=== PATIENT | male | born 1995 | race Caucasian/White ===

== ENCOUNTER 2019-06-03 15:39 | Outpatient (CLI) | payer BC ==
--- NOTE | 2019-06-04 08:00 | MRI ---
MRI OF LEFT KNEE PERFORMED WITHOUT CONTRAST ENHANCEMENT: HISTORY: Injured knee in March. Having trouble fully extending left knee. FINDINGS: There is a proximal ACL tear which appears complete. The posterior cruciate ligament is intact. The medial as well as lateral menisci have a normal shape and appearance. The medial as well as lateral collateral ligaments are intact. Iliotibial band region appears unrema rkable. Patellar articular cartilage is intact. The mediolateral patellar retinaculum and quadriceps and pat ellar tendons appear unremarkable other than some mild patellar tendinosis. IMPRESSION: 1. Anterior cruciate ligament tear is a more proximal complete anterior cruciate ligament tear. 2. Very mild patellar tendinosis. POS: [facility]
== END 2019-06-03 15:40 | disposition home or self-care (01) ==
LOC: SCSMRI 15:39
PROVIDERS: ATTEND Orthopaedic Surgery
DX: M25.562 Pain in left knee (principal); S83.512A Sprain of anterior cruciate ligament of left knee, initial encounter; M76.52 Patellar tendinitis, left knee

== ENCOUNTER 2019-06-15 14:13 | Day surgery (SDC) | payer BC ==
[~2019-06-15 14:13] MED LIST: EPHEDRINE 25 MG/5 ML SYRINGE ONE; Lidocaine 1% PF 5 ML VIAL ONE; Ondansetron PF 4 MG/2 ML Vial ONE; PHENYLEPHRINE-NS 100 MCG/ML 10 ML SYRINGE ONE; PROPOFOL 200 MG/20 ML VIAL ONE
[2019-06-15 15:06] LABS: #Basophils 0.1 thou/uL (0.0-0.2); #Eosinphils 0.4 thou/uL (0.0-0.7); #Lymphocytes 2.3 thou/uL (1.20-3.40); #Monocytes 0.7 thou/uL (0.11-0.59); #Neutrophils 5.3 thou/uL (1.40-6.50); %Basophils 0.8 % (0.0-1.0); %Eosinophils 4.5 % (0.0-10.0); %Lymphocytes 26.3 % (21.0-51.0); %Monocytes 7.6 % (0.0-10.0); %Neutrophils 60.8 % (42.0-75.0); Hemoglobin 17.6 g/dL (14.0-18.0); Mean Corpuscular HGB CONC 34.2 g/dL (32.0-36.0); Mean Corpuscular Hemoglobin 30.9 pg (27.0-31.0); Mean Corpuscular Volume 90.4 fL (78.0-98.0); Mean Platelet Volume 7.9 fL (7.4-10.4); Platelet Count 254 thou/uL (130-400); RBC Distribution Width 11.1 % (11.5-14.5); Red Blood Cell (RBC) Count 5.68 mill/uL (4.70-6.10); White Blood Cell (WBC) Count 8.7 thou/uL (4.8-10.8)
[2019-06-15] MEDS ORDERED: Bupivacaine PF 0.5% 30 ML VIAL ONE (16:56)
[2019-06-15] MEDS ORDERED: Bacitracin Zinc Ointment 30 gm TUBE ONE (16:56)
[2019-06-15] MEDS ORDERED: Sodium Chloride 0.9% 10 ML ONE ×2 (16:56→16:57)
[2019-06-15] MEDS ORDERED: Lidocaine 2% Jelly 5 ML TUBE ONE (17:00)
[2019-06-15] MEDS ORDERED: Midazolam HCl 2 mg/2 ml Vial ONE (17:00)
[2019-06-15] MEDS ORDERED: Fentanyl 100 MCG/2 ML VIAL ONE (17:00)
[2019-06-15] MEDS ORDERED: Ketorolac Tromethamine 30 MG/ML VIAL ONE (19:50)
--- NOTE | 2019-06-16 00:53 | OP ---
DATE OF PROCEDURE: 06/15/2019 PREOPERATIVE DIAGNOSES: 1. Left thumb open distal phalanx fracture with open wound 3 cm. 2. Laceration to left thumb. 3. Complex nail bed laceration with defect. POSTOPERATIVE DIAGNOSES: 1. Left thumb open distal phalanx fracture with open wound 3 cm. 2. Laceration to left thumb. 3. Complex nail bed laceration with defect. FINDINGS: 1. Left thumb open distal phalanx fracture with open wound 3 cm. 2. Laceration to left thumb. 3. Complex nail bed laceration with defect. PROCEDURES PERFORMED: 1. Left thumb wound debridement deep down to including bone. 2. Debridement of material associated with open fracture. 3. Nail bed repair. 4. Nail bed graft 5 x 3 mm. 5. C-arm supervision. 6. Left thumb distal phalanx fracture open reduction and internal fixation. 7. Application of short-arm splint. SPECIMENS: None. ESTIMATED BLOOD LOSS: 10 mL. TOURNIQUET TIME: 58 minutes. INJECTABLES: 10 mL of 0.5% Marcaine before procedure began. INDICATIONS FOR PROCEDURE: The patient with a 3-day old wound, presented to clinic today with markedly comminuted fracture, neurologically intact including normal two-point discrimination in the radial and ulnar aspect of the thumb, but he had a 4-part fracture that was angulated, displaced and a nail bed laceration associated with it that was over 80% hematoma indicating the high likelihood of complex nail bed injury that needed repair. DESCRIPTION OF PROCEDURE: After successful general LMA technique, the limb was prepped and draped. The patient had the time-out done appropriately. Limb prepped and draped. Limb exsanguinated. Tourniquet inflated to 250 mmHg pressure. We made a 40 degrees angle incision beginning at the base of the nail bed on the same side of the laceration (the ulnar side) and then lifted up the nail via eponychial fold to evaluate the nail bed. We saw he had a germinal nail bed laceration with marked comminution of the nail bed laceration itself, we lifted up the bone, inspected and saw there were small amount of hematoma, so underwent debridement using the following techniques: 1. Excision technique. 2. Use of curette, Eighty Four blade, 11 blade knife, and Pulsavac 2 L with antibiotics inside. 3. Debridement technique down to depth including the bone as well as the bone and there was no gross particles seen today. Once we finished irrigation and debridement of this, we debrided the wound in the same fashion using same instruments and techniques, we then prepared for repair. First, we sutured the laceration that was 3 cm using a combination of 4-0 and 5-0 nylon. Then, we lifted up the edges of the nail bed, visualized the fracture once again, reduced it from outside and then held it in place. We passed 2 K-wires in the sagittal plane parallel and the frontal plane obliquely conversion for compression. Once this was done, we used a best fit technique. There was so much comminution in the 4-part fracture that we had too except a mild degree of impaction. The patient then had the nailbed laceration repaired. After we performed the repair with 6-0 chromic, we noted there was an area approximately 5 x 3 mm where the nail bed was so jagged, when lifted up it was none actually there, so we decided to place a partial-thickness nailbed graft using mostly germinal matrix/sterile matrix juncture nailbed. A 5 x 3 mm area was harvested. It was wet with normal saline drops and then we used three 6-0 chromic in a triangular shaped pattern to secure it. We placed a heavy amount of bacitracin, Adaptic over this, took the old nail and cut it square and placed it on top of this and then we released the tourniquet. We closed the eponychial fold with a 4-0 nylon, and we secured the nail in this manner. We placed bacitracin, Adaptic, 4 x 4 over the repaired nail and nail bed and laceration, 4x4s, Kerlix, and then a short-arm thumb spica splint. He left the operation with a pink finger and no evidence of anesthetic or operative complication. Job ID: [id number]
== END 2019-06-15 21:25 | disposition home or self-care (01) ==
LOC: SDC 14:13
PROVIDERS: ATTEND Orthopaedic Surgery Hand Surgery
PROC: 0PBV0ZZ Excision of Left Finger Phalanx, Open Approach (ICD-10-PCS; principal; 2019-06-15)
PROC: 0HRQX7Z Replacement of Finger Nail with Autologous Tissue Substitute, External Approach (ICD-10-PCS; principal; 2019-06-15)
PROC: 0PSS04Z Reposition Left Thumb Phalanx with Internal Fixation Device, Open Approach (ICD-10-PCS; principal; 2019-06-15)
DX: S62.522B Displaced fracture of distal phalanx of left thumb, initial encounter for open fracture (principal); X58.XXXA Exposure to other specified factors, initial encounter; Y93.59 Activity, other involving other sports and athletics played individually
CPT/HCPCS: 36415; 76000; 85025; J0690; J1885; J2001; J2250; J2405; J2704; J3010; J3490; S0020

== ENCOUNTER 2019-07-28 06:36 | Outpatient (CLI) | payer BC, OTHER ==
[2019-07-28 17:07] LABS: SARS-CoV-2 MS2 Positive; SARS-CoV-2 N Gene Negative; SARS-CoV-2 S Gene Negative; SARS-CoV-2 orf1ab Negative
== END 2019-07-28 06:37 | disposition home or self-care (01) ==
LOC: LABBT 06:36
PROVIDERS: ATTEND Orthopaedic Surgery
DX: Z01.812 Encounter for preprocedural laboratory examination (principal); Z11.59 Encounter for screening for other viral diseases; S83.512A Sprain of anterior cruciate ligament of left knee, initial encounter
CPT/HCPCS: 87635; U0003

== ENCOUNTER 2019-07-31 05:44 | Observation (INO) | payer BC ==
[2019-07-28 09:35] VITALS: BMI 28.7
[2019-07-31] MEDS ORDERED: Midazolam HCl 2 mg/2 ml Vial ONE ×2 (06:26→07:36)
[2019-07-31] MEDS ORDERED: Ropivacaine 0.5% HCl/PF (150 MG/30 ML VIAL) ONE ×2 (06:26→11:24)
[2019-07-31] MEDS ORDERED: Fentanyl 100 MCG/2 ML VIAL ONE ×3 (06:26→09:31)
[2019-07-31] MEDS ORDERED: Ropivacaine 0.2% HCl/PF 20 ML ONE (06:26)
[2019-07-31] MEDS ORDERED: traMADol HCl 50 MG TAB PO PRN ×2 (08:29)
[2019-07-31] MEDS ORDERED: Ropivacaine 0.2% 550 ML 550 ML NERVE BLCK SCH (08:29)
[2019-07-31] MEDS ORDERED: Ketorolac Tromethamine 30 MG/ML VIAL IVP PRN (08:29)
[2019-07-31] MEDS ORDERED: Ondansetron PF 4 MG/2 ML Vial IVP PRN (08:29)
[2019-07-31] MEDS ORDERED: Promethazine HCl 25 MG/ML VIAL IM PRN (08:29)
[2019-07-31] MEDS ORDERED: Zolpidem Tartrate 5 MG TAB PO PRN (08:29)
[2019-07-31] MEDS ORDERED: HYDROcodone/Acetaminophen 5/325 mg Tablet PO PRN ×2 (08:29)
[2019-07-31] MEDS ORDERED: HYDROcodone/Acetaminophen 7.5/325 mg Tablet PO PRN ×2 (09:04)
[2019-07-31] MEDS ORDERED: Morphine 4 MG/ML VIAL SLOW IVP PRN (09:04)
[2019-07-31] MEDS ORDERED: Milk Of Magnesia 30 ML UDCUP PO PRN (09:04)
[2019-07-31] MEDS ORDERED: Methocarbamol 500 MG TAB PO PRN (09:04)
[2019-07-31] MEDS ORDERED: Bisacodyl 10 MG SUPP PR PRN (09:04)
[2019-07-31] MEDS ORDERED: Morphine 2 MG/ML SYRINGE SLOW IVP PRN (09:04)
[2019-07-31] MEDS ORDERED: Acetaminophen 500 MG TAB PO PRN (09:04)
[2019-07-31] MEDS ORDERED: diphenhydrAMINE 50 MG CAP PO PRN (09:04)
[2019-07-31] MEDS ORDERED: Meperidine HCl/PF 25 MG/ML VIAL ONE (09:31)
[2019-07-31] MEDS ORDERED: PROPOFOL 200 MG/20 ML VIAL ONE (11:24)
[2019-07-31] MEDS ORDERED: Ondansetron PF 4 MG/2 ML Vial ONE (11:24)
[2019-07-31] MEDS ORDERED: Ketorolac Tromethamine 30 MG/ML VIAL ONE (11:24)
[2019-07-31] MEDS ORDERED: Dexamethasone 20 MG/5 ML VIAL ONE (11:24)
[2019-07-31] MEDS ORDERED: Lidocaine 1% PF 5 ML VIAL ONE (11:24)
[2019-07-31] MEDS ORDERED: Ropivacaine 0.2% HCl/PF (40 MG/20 ML VIAL) ONE (11:24)
[2019-07-31] MEDS: CEFAZOLIN 2 GM in Premix Bag 1 BAG IVPB SCH ×2 (14:30→22:32)
[2019-07-31] MEDS: Dextrose 5 %-0.45 % NaCl 1,000 ML IV SCH ×2 (14:30→21:50)
[2019-07-31] MEDS: Famotidine 20 MG TAB PO SCH (22:09)
[2019-08-01 07:19] VITALS: TEMP 98.2
[2019-08-01] MEDS: Dextrose 5 %-0.45 % NaCl 1,000 ML IV SCH (07:27)
[2019-08-01 07:48] VITALS: BP 119/63
[2019-08-01] MEDS: Famotidine 20 MG TAB PO SCH (08:49)
--- NOTE | 2019-08-02 22:21 | OP ---
DATE OF PROCEDURE: 07/31/2019 PREOPERATIVE DIAGNOSIS: Left knee anterior cruciate ligament tear. POSTOPERATIVE DIAGNOSIS: Left knee anterior cruciate ligament tear. PROCEDURES PERFORMED: 1. Left knee exam under anesthesia. 2. Left knee arthroscopy with arthroscopically-assisted anterior cruciate ligament reconstruction using autologous patellar tendon graft. ATTENDING AMBULATORY CARE: Eddi Beckham PA-C. BLOOD LOSS: Minimal. COMPLICATIONS: None. ANESTHESIA: He had general anesthetic. He also had a preoperative block. IMPLANTS USED: 7 x 25 mm interference screw in the femur. We used bicortical screw with a smooth washer as a post on the tibia. DISPOSITION: He did go to recovery room in stable condition. INDICATIONS: This 23-year-old male injured his knee and is now presenting months down the road for ACL reconstruction. DESCRIPTION OF PROCEDURE: After all appropriate consent forms were explained and signed, he was taken to the operative room and at this time was given general anesthetic. Once the level of anesthesia was appropriate, exam under anesthesia was performed of his left leg. Positive Guillermo was noted with negative posterior drawer and he was stable to varus and valgus stress. At this time, the knee was taken through full range of motion. Tourniquet was then placed in the left thigh and leg was then prepped and draped in standard surgical fashion. The limb was then exsanguinated and tourniquet was taken up to 250 mmHg. A midline incision was made with 10 blade down through skin. Bovie was used to coagulate any brisk venous bleeding. New blade was used to take the paratenon off the underlying patellar tendon, and at this time, the central third patellar tendon graft was harvested using a double 10 blade saw and osteotome. This was taken to the back table and made so that the femoral side was a size 10 and tibial side was a size 11. At this time, we loosely closed our graft site with multiple interrupted Vicryl. Inferolateral portal was then established. Scope was placed into the knee joint. Needle localization technique was then used to make a medial working portal. Diagnostic arthroscopy commenced in the patellofemoral joint, everything was found to be in normal condition in this area. The notch was entered. ACL tear was confirmed. PCL was intact. At this time, all soft tissue remnant of the ACL was removed. Medial compartment was then evaluated and there was a little bit of scuffing on the posterior tibial plateau. The femur looked good. Medial meniscus was probed and found to be intact. The lateral compartment was found to be completely intact. We then performed a notchplasty in a standard fashion. We then flexed the knee up, and with the knee flexed, an [id number] guide was used to place a pin up and out the anterolateral thigh. A 10 mm reamer was then used to ream our depth of 30. All loose bony cartilaginous debris was then removed from the knee joint. We then set our tibial guide into the knee at 52.5 degrees. Tibial pin was placed. An 11 mm reamer was then used to ream our tibial tunnel. Again, all loose cartilaginous and bony debris was removed from the knee joint. Red rasp and lizzie were then used to smooth our edges to remove any excess bone. Once this was done, we went dry, flexed the knee up again, and used a passing pin to pull a passing suture into the knee joint. We then pulled this down the tibial tunnel and used this to pull our graft up into the knee. Once the graft was pulled into the knee, it was inset on the femur with a 7 x 25 metal interference screw. We then took the knee through full range of motion while pulling tension on the graft, making sure that the knee did not impinge in extension or flexion. We then drilled, tapped, and placed our bicortical screw with a smooth washer, tying our sutures around this in essentially full extension and posterior drawer being applied. Once this was done, camera was used again to confirm that there was no impingement of our graft. camera was then removed. Knee was drained. We then bone grafted our patellar and tibial defect sites. We then ran a large Vicryl to close our paratenon, 2-0 Vicryl and surgical kaela were used to close the wound. Bulky sterile dressing was applied. Tourniquet was let down. Toes pinked up nicely. The patient was then awakened and he was taken to recovery room in stable condition. All counts were correct at the end of the case and he did receive preoperative IV antibiotics. Job ID: [id number]
== END 2019-08-01 10:50 | disposition home or self-care (01) ==
LOC: SDC 05:44 → SURG A 10:52
PROVIDERS: ADMIT Orthopaedic Surgery; ATTEND Orthopaedic Surgery
PROC: 0MRP47Z Replacement of Left Knee Bursa and Ligament with Autologous Tissue Substitute, Percutaneous Endoscopic Approach (ICD-10-PCS; principal; 2019-08-01)
DX: S83.512A Sprain of anterior cruciate ligament of left knee, initial encounter (principal)
CPT/HCPCS: 96361; 96374; 96376; A4306; C1713; G0378; J0690; J1100; J1885; J2001; J2175; J2250; J2405; J2704; J2795; J3010